=== PATIENT | male | born 1995 | race Hispanic/Latino ===

== ENCOUNTER 2017-05-28 00:22 | Emergency (ER) | payer BC ==
[2017-05-28 00:31] VITALS: BMI 31.3
[2017-05-28] MEDS ORDERED: Albuterol-Ipratrop 3 mg / 0.5 (3 ml) UD IH STA ×2 (00:31→00:32)
[2017-05-28] MEDS ORDERED: Levalbuterol 1.25 MG/3 ML Inhal Soln UD IH STA ×3 (00:36→00:57)
--- NOTE | 2017-05-28 00:37 | ED PDOC ---
Arrival/HPI - General Time Seen by Provider: 05/28/17 00:30 Historian: Patient - History of Present Illness Narrative History of Present Illness (Text): 05/28/17 00:34 22yo male with pmhx of Asthma, Asperger, sleep apnea, present with wheezing, SOB x one hour [employer]. The mother who is by the bedside states they heat was turned on tonight and patient started having these symptoms s/p. Notes patient last Asthma exacerbation was last year. He don't have treatment at home. He have never been admitted for Asthma. He is not steroid dependent. He denies fever, chills, sick contact, any other complaint. Past Medical History - Provider Review Nursing Documentation Reviewed: Yes Family/Social History - Physician Review Nursing Documentation Reviewed: Yes Family/Social History: Unknown Family HX Allergies/Home Meds Allergies/Adverse Reactions: Allergies No Known Allergies Allergy (Verified 05/28/17 00:31) Review of Systems - Physician Review All systems were reviewed & negative as marked: Yes - Review of Systems Constitutional: Normal Eyes: Normal ENT: Normal Respiratory: SOB, Wheezing. absent: Cough Cardiovascular: Normal Gastrointestinal: Normal Genitourinary Male: Normal Musculoskeletal: Normal Skin: Normal Neurological: Normal Endocrine: Normal Hemo/Lymphatic: Normal Psychiatric: Normal Physical Exam Vital Signs Reviewed: Yes Vital Signs Temp Pulse Resp BP Pulse Ox 05/28/17 02:23 18 97 05/28/17 02:20 98.0 F 112 H 18 128/81 97 05/28/17 00:46 24 91 L 05/28/17 00:27 98.3 F 126 H 24 130/105 H 91 L Temperature: Afebrile Blood Pressure: Hypertensive Pulse: Tachycardic Respiratory Rate: Normal Appearance: Positive for: Well-Appearing, Non-Toxic, Comfortable Pain Distress: None Mental Status: Positive for: Alert and Oriented X 3 - Systems Exam Head: Present: Atraumatic, Normocephalic Pupils: Present: PERRL Extroacular Muscles: Present: EOMI Conjunctiva: Present: Normal Mouth: Present: Moist Mucous Membranes Neck: Present: Normal Range of Motion Respiratory/Chest: Present: Good Air Exchange, Accessory Muscle Use, Wheezes ( Diffuse wheeze expiratory>inspiratory), Decreased Breath Sounds. No: Clear to Auscultation, Respiratory Distress, Rales, Retracting, Rhonchi, Tachypneic Cardiovascular: Present: Regular Rate and Rhythm, Normal S1, S2. No: Murmurs Abdomen: Present: Normal Bowel Sounds. No: Tenderness, Distention, Peritoneal Signs Back: Present: Normal Inspection Upper Extremity: Present: Normal Inspection. No: Cyanosis, Edema Lower Extremity: Present: Normal Inspection. No: Edema Neurological: Present: GCS=15, CN II-XII Intact, Speech Normal Skin: Present: Warm, Dry, Normal Color. No: Rashes Psychiatric: Present: Alert, Oriented x 3, Normal Insight, Normal Concentration Medical Decision Making ED Course and Treatment: 05/28/17 01:37 PT presented for sted history. He was treated with solu medrol, Xopenex x2 and Duoneb x1 in ED. Lab was unremarkable On re evaluation lung was CTA b/l. Pt was talking in full sentence without distress. He will be DC home with a rx of Prednisone and albuterol. - Lab Interpretations Lab Results: 05/28/17 00:41 05/28/17 00:41 Lab Results 05/28/17 00:41: Sodium 140, Potassium 4.3, Chloride 101, Carbon Dioxide 27, Anion Gap 16, BUN 24 H, Creatinine 1.2, Est GFR ( Amer) > 60, Est GFR ( Non-Af Amer) > 60, Random Glucose 138 H, Calcium 9.8, Total Bilirubin 0.7, AST 33, ALT 62 H, Alkaline Phosphatase 82, Total Protein 8.1, Albumin 5.1 H, Globulin 3.1, Albumin/Globulin Ratio 1.6 05/28/17 00:41: WBC 12.3 H, RBC 5.40, Hgb 17.4, Hct 47.7, MCV 88.3, MCH 32.2, MCHC 36.5, RDW 12.6, Plt Count 297, MPV 10.7, Gran % 44.6 L, Lymph % (Auto) 45.0 H, Gibson % (Auto) 5.6, Eos % (Auto) 4.3, Baso % (Auto) 0.5, Gran # 5.51, Lymph # 5.6 H, Gibson # 0.7 H, Eos # 0.5, Baso # 0.06 - Medication Orders Current Medication Orders: Discontinued Medications Levalbuterol HCl (Xopenex) 1.25 mg IH STAT STA Stop: 05/28/17 00:37 Last Admin: 05/28/17 01:10 Dose: 1.25 mg Levalbuterol HCl (Xopenex) 1.25 mg IH STAT STA Stop: 05/28/17 00:38 Last Admin: 05/28/17 00:44 Dose: 1.25 mg Levalbuterol HCl (Xopenex) 1.25 mg IH STAT STA Stop: 05/28/17 00:58 Methylprednisolone (Solu-Medrol) 125 mg IVP STAT STA Stop: 05/28/17 00:32 Last Admin: 05/28/17 00:44 Dose: 125 mg IVP Administration Document 05/28/17 00:44 SARAH (Rec: 05/28/17 00:44 SARAH [id number]) Charges for Administration # of IVP Administrations 1 Disposition/Present on Arrival - Present on Arrival Any Indicators Present on Arrival: No History of DVT/PE: No History of Uncontrolled Diabetes: No Urinary Catheter: No History of Decub. Ulcer: No History Surgical Site Infection Following: None - Disposition Have Diagnosis and Disposition been Completed?: Yes Diagnosis: Asthma exacerbation Disposition: HOME/ ROUTINE Disposition Time: 02:15 Patient Plan: Discharge Condition: STABLE Discharge Instructions (ExitCare): Asthma (ED) Additional Instructions: Follow up with your doctor Return to Ed for any new symptoms Prescriptions: Albuterol HFA [Ventolin HFA 90 mcg/actuation (8 g)] 2 puff IH [id number] #1 puff Prednisone 50 mg PO DAILY #5 tablet Referrals: Cuong Higgins MD [Primary Care Provider] - Follow up with primary Forms: [employer] (Polish)
[2017-05-28 00:57] LABS: BASO # 0.06 K/mm3 (0.0-2.0); BASO % 0.5 % (0.0-3.0); EOS # 0.5 (0.0-0.7); EOS % 4.3 % (1.5-5.0); GRAN # 5.51 (1.4-6.5); GRAN % 44.6 % (50.0-68.0); HEMATOCRIT 47.7 % (42.0-52.0); LYMPH # 5.6 (1.2-3.4); MEAN CELL VOLUME 88.3 fl (80.0-105.0); MEAN CORPUSCULAR HEMOGLOBIN 32.2 pg (25.0-35.0); MEAN CORPUSCULAR HGB CONC 36.5 g/dl (31.0-37.0); MEAN PLATELET VOLUME 10.7 fl (7.0-11.0); MONO # 0.7 (0.1-0.6); MONO % 5.6 % (1.0-6.0); RED CELL DISTRIBUTION WIDTH 12.6 % (11.5-14.5); WHITE BLOOD COUNT 12.3 10^3/ul (4.5-11.0)
[2017-05-28 01:10] LABS: ALB/GLOB RATIO 1.6 (1.1-1.8); ALKALINE PHOSPHATASE 82 U/L (38-126); ALT/SGPT 62 U/L (7-56); AST/SGOT 33 U/L (17-59); BILIRUBIN,TOTAL 0.7 mg/dL (0.2-1.3); BLOOD UREA NITROGEN 24 mg/dL (7-21); CALCIUM 9.8 mg/dL (8.4-10.5); CARBON DIOXIDE 27 mmol/L (21-33); CHLORIDE 101 mmol/L (95-110); GFR AFRICAN-AMERICAN > 60; GLUCOSE,RANDOM 138 mg/dL (70-110); POTASSIUM 4.3 mmol/L (3.6-5.0); SODIUM 140 mmol/L (132-148); TOTAL PROTEIN 8.1 g/dL (5.8-8.3)
[2017-05-28 02:23] VITALS: BP 128/81; PULSE 112; RESP 18; TEMP 98; O2SAT 97
== END 2017-05-28 02:24 | disposition home or self-care (01) ==
LOC: ED 00:22
DX: J45.901 Unspecified asthma with (acute) exacerbation (principal)
CPT/HCPCS: 80053; 85025; 96374; 99284; J2930